=== PATIENT | male | born 1965 | race Caucasian/White ===

== ENCOUNTER 2017-12-31 23:22 | Outpatient (CLI) | payer MEDICAID | END 2017-12-31 23:23 | disposition critical access hospital (66) | LOC: EMS 23:22 | PROVIDERS: ATTEND Surgery | DX: R45.851 Suicidal ideations (principal) | CPT/HCPCS: A0425; A0429 ==

== ENCOUNTER 2017-12-31 23:45 | Emergency (ER) | payer MEDICAID ==
[2017-12-31] MEDS ORDERED: LORazepam 0.5 MG TABLET PO STA (23:53)
[2017-12-31] MEDS ORDERED: chlordiazePOXIDE 25 MG CAPSULE PO STA (23:53)
--- NOTE | 2017-12-31 23:53 | ED Physician Documentation ---
PD HPI MHE - Stated complaint Stated Complaint: SI - Chief complaint Chief Complaint: MHE - History obtained from History obtained from: Patient - History of Present Illness Primary symptom: Suicidal ideation, Depression Timing - onset: How many days ago (5) Contributing factors: Work, Substance abuse - ETOH Similar symptoms before: No diagnosis Recently seen: Not recently seen - Additional information Additional information: Patient is a 52 year old male with a history of depression who was brought in by ems for suicidal ideation. patient states that he lost his job 5 days ago out of nowhere. patient stated that he came over to [facility] to see his family and was found walking down the street in the rain saying he wanted to kill himself. he reported that he would use a shotgun. patient also stated that he is a daily drinker and drinks about a bottle of wine and a six pack a day. Review of Systems Ten Systems: 10 systems reviewed and negative Psychiatric: reports: Depressed, Suicidal, Anxiety PD PAST MEDICAL HISTORY - Present Medications Home Medications: Ambulatory Orders Medication Instructions Recorded Confirmed Cetirizine HCl/Pseudoephedrine 1 tab PO DAILY PRN 01/01/18 01/01/18 [Zyrtec-D Tablet] Venlafaxine HCl [Effexor Xr] 1 tab PO DAILY 01/01/18 01/01/18 - Allergies Allergies/Adverse Reactions: Allergies Allergy/AdvReac Type Severity Reaction Status Date / Time No Known Drug Allergies Allergy Verified 01/01/18 00:11 PD ED PE NORMAL - General General: Alert and oriented X 3 - HEENT HEENT: Atraumatic - Respiratory Respiratory: No respiratory distress, Clear bilaterally - Abdomen Abdomen: Non distended - Derm Derm: Normal color, No rash - Extremities Extremities: No deformity - Neuro Neuro: Alert and oriented X 3, No motor deficit Eye Opening: Spontaneous Motor: Obeys Commands Verbal: Oriented GCS Score: 15 PD ED PE EXPANDED - Cardiac Cardiac: Tachy - Psych Psych: Depressed, Suicidal, Withdrawn Results - Vitals Vitals: Vital Signs - 24 hr 12/31/17 01/01/18 01/01/18 23:48 00:09 00:45 Temperature 36.0 C L Heart Rate 105 H 94 88 Respiratory 20 18 16 Rate Blood Pressure 200/122 H 209/125 H 187/125 H O2 Saturation 99 95 96 01/01/18 01/01/18 01/01/18 01:07 02:22 03:24 Temperature Heart Rate 93 113 H 105 H Respiratory 16 16 16 Rate Blood Pressure 185/110 H 179/106 H 188/108 H O2 Saturation 99 95 97 01/01/18 06:18 Temperature Heart Rate 103 H Respiratory 18 Rate Blood Pressure 161/109 H O2 Saturation 99 Oxygen O2 Source Room air - Labs Labs: Laboratory Tests 01/01/18 01/01/18 01/01/18 00:04 00:04 00:04 WBC 5.8 RBC 4.59 L Hgb 15.0 Hct 43.2 MCV 94.0 MCH 32.7 H MCHC 34.8 RDW 13.7 Plt Count 242 MPV 7.7 Neut # 4.1 Lymph # 1.2 L [place] # 0.4 Eos # 0.0 Baso # 0.0 Absolute Nucleated RBC 0.00 Nucleated RBC % 0.0 Sodium 138 Potassium 3.7 Chloride 102 Carbon Dioxide 23 Anion Gap 13.0 BUN 9 Creatinine 0.8 Estimated GFR (MDRD) 102 Glucose 135 H Calcium 9.1 Total Bilirubin 1.3 H AST 64 H ALT 54 Alkaline Phosphatase 63 Total Protein 8.1 Albumin 4.8 Globulin 3.3 Albumin/Globulin Ratio 1.5 Lipase 21 L TSH 2.62 Urine Color Urine Clarity Urine pH Ur Specific [place] Urine Protein Urine Glucose (UA) Urine Ketones Urine Occult Blood Urine Nitrite Urine Bilirubin Urine Urobilinogen Ur Leukocyte Esterase Ur Microscopic Review Urine Culture Comments Urine Opiates Screen Ur Oxycodone Screen Urine Methadone Screen Ur Propoxyphene Screen Ur Barbiturates Screen Ur Tricyclics Screen Ur Phencyclidine Scrn Ur Amphetamine Screen U Methamphetamines Scrn U Benzodiazepines Scrn Urine Cocaine Screen U Cannabinoids Screen Ethyl Alcohol 8.4 01/01/18 00:39 WBC RBC Hgb Hct MCV MCH MCHC RDW Plt Count MPV Neut # Lymph # [place] # Eos # Baso # Absolute Nucleated RBC Nucleated RBC % Sodium Potassium Chloride Carbon Dioxide Anion Gap BUN Creatinine Estimated GFR (MDRD) Glucose Calcium Total Bilirubin AST ALT Alkaline Phosphatase Total Protein Albumin Globulin Albumin/Globulin Ratio Lipase TSH Urine Color YELLOW Urine Clarity CLEAR Urine pH 6.0 Ur Specific [place] 1.020 Urine Protein NEGATIVE Urine Glucose (UA) NEGATIVE Urine Ketones 40 H Urine Occult Blood NEGATIVE Urine Nitrite NEGATIVE Urine Bilirubin NEGATIVE Urine Urobilinogen 0.2 (NORMAL) Ur Leukocyte Esterase NEGATIVE Ur Microscopic Review NOT INDICATED Urine Culture Comments NOT INDICATED Urine Opiates Screen NEGATIVE Ur Oxycodone Screen NEGATIVE Urine Methadone Screen NEGATIVE Ur Propoxyphene Screen NEGATIVE Ur Barbiturates Screen NEGATIVE Ur Tricyclics Screen NEGATIVE Ur Phencyclidine Scrn NEGATIVE Ur Amphetamine Screen NEGATIVE U Methamphetamines Scrn NEGATIVE U Benzodiazepines Scrn NEGATIVE Urine Cocaine Screen NEGATIVE U Cannabinoids Screen NEGATIVE Ethyl Alcohol PD MEDICAL DECISION MAKING - ED course Complexity details: reviewed old records, reviewed results, re-evaluated patient , considered differential, d/w patient ED course: Patient was seen and examined at bedside. Patient was slightly agitated with mild withdrawal symptoms. Patient was tearful but cooperative. Patient was treated with ativan 0.5mg and librium. Patient was able to calm down. a few hours later patient was asking for something to help him sleep and was treated with ativan 1mg. Patient was able to rest comfortably. In the morning the patient was re-evaluated and he was able to elaborate more. 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 patient also states that his and child are in the [place] and he will not be able to see them. Patient states that this morning he does not want to kill himself but he would like to talk to the social work professor. Patient's blood pressure was still elevated and patient was treated with librium and clonidine. Patient had no signs of end organ damage and was medically clear by my standpoint. Patient was signed over to Dr. Lebron pending social work evaluation. Departure - Departure Clinical Impression: Depression Condition: Good Instructions: ED Stress React Comments: Your blood pressure was high today. It is at least in part due to alcohol withdrawal as well as elevated stress levels but it is important to monitor it routinely and follow up with your doctor if it remains elevated.
[2018-01-01 00:15] LABS: BASOPHILS % (AUTO) 0.4 %; EOSINOPHILS % (AUTO) 0.7 %; LYMPHOCYTES # (AUTO) 1.2 10^3/uL (1.5-3.5); LYMPHOCYTES % (AUTO) 20.1 %; MEAN CORPUSCULAR HEMOGLOBIN 32.7 pg (27.0-31.0); MEAN CORPUSCULAR HGB CONC 34.8 g/dL (32.0-36.0); MEAN PLATELET VOLUME 7.7 fL (7.4-11.4); MONOCYTES # (AUTO) 0.4 10^3/uL (0.0-1.0); MONOCYTES % (AUTO) 7.2 %; NEUTROPHILS # (AUTO) 4.1 10^3/uL (1.5-6.6); NEUTROPHILS % (AUTO) 71.6 %; PLT - PLATELET COUNT 242 10^3/uL (130-450); RED BLOOD COUNT 4.59 10^6/uL (4.70-6.10); RED CELL DISTRIBUTION WIDTH 13.7 % (12.0-15.0); WHITE BLOOD COUNT 5.8 x10^3/uL (4.8-10.8)
[2018-01-01 00:23] LABS: ALBUMIN 4.8 g/dL (3.2-5.5); ALBUMIN/GLOBULIN RATIO 1.5 (1.0-2.2); BILIRUBIN,TOTAL 1.3 mg/dL (0.2-1.0); CALCIUM 9.1 mg/dL (8.5-10.3); CREATININE 0.8 mg/dL (0.6-1.2); TOTAL PROTEIN 8.1 g/dL (6.7-8.2)
[2018-01-01 00:43] LABS: MUDS CUTOFF CONCENTRATIONS CUTOFF CONC BELOW:
[2018-01-01 00:48] LABS: BILIRUBIN,URINE NEGATIVE (NEGATIVE); GLUCOSE, URINE (UA) NEGATIVE (NEGATIVE); KETONES,URINE (UA) 40 mg/dL (NEGATIVE); LEUKOCYTE ESTERASE, URINE NEGATIVE (NEGATIVE); NITRITE,URINE NEGATIVE (NEGATIVE); OCCULT BLOOD,URINE NEGATIVE (NEGATIVE); PROTEIN,URINE NEGATIVE (NEGATIVE); UROBILINOGEN,URINE 0.2 (NORMAL) E.U./dL (NORMAL)
[2018-01-01 00:49] LABS: CLARITY,URINE CLEAR (CLEAR)
[2018-01-01 00:58] LABS: AMPHETAMINE SCREEN,URINE NEGATIVE (NEGATIVE); BENZODIAZEPINES SCREEN, URINE NEGATIVE (NEGATIVE); COCAINE SCREEN URINE NEGATIVE (NEGATIVE); METHADONE SCREEN, URINE NEGATIVE (NEGATIVE); METHAMPHETAMINES SCREEN, URINE NEGATIVE (NEGATIVE); OPIATE SCREEN, URINE NEGATIVE (NEGATIVE); OXYCODONE SCREEN, URINE NEGATIVE (NEGATIVE); PROPOXYPHENE SCREEN, URINE NEGATIVE (NEGATIVE); TRICYCLIC ANTIDEPRESSANT,URINE NEGATIVE (NEGATIVE)
[2018-01-01] MEDS ORDERED: LORazepam 0.5 MG TABLET PO STA (02:21)
[2018-01-01] MEDS ORDERED: cloNIDine 0.1 MG TABLET PO STA (06:42)
[2018-01-01] MEDS ORDERED: chlordiazePOXIDE 25 MG CAPSULE PO STA ×3 (06:47→14:00)
--- NOTE | 2018-01-01 08:01 | ED Physician Documentation ---
History of Present Illness - Stated complaint Stated Complaint: SI - Chief complaint Chief Complaint: MHE PD PAST MEDICAL HISTORY - Past Medical History Past Medical History: Yes Psych: Depression, Anxiety, Panic attacks - Past Surgical History Past Surgical History: No - Present Medications Home Medications: Ambulatory Orders Medication Instructions Recorded Confirmed Cetirizine HCl/Pseudoephedrine 1 tab PO DAILY PRN 01/01/18 01/01/18 [Zyrtec-D Tablet] Venlafaxine HCl [Effexor Xr] 1 tab PO DAILY 01/01/18 01/01/18 - Allergies Allergies/Adverse Reactions: Allergies Allergy/AdvReac Type Severity Reaction Status Date / Time No Known Drug Allergies Allergy Verified 01/01/18 00:11 - Social History Does the pt smoke?: No Smoking Status: Never smoker Does the pt drink ETOH?: Yes ETOH Use: Wine, Beer Does the pt have substance abuse?: No - Immunizations Immunizations are current?: Yes Results - Vitals Vitals: Vital Signs - 24 hr 01/01/18 01/02/18 01/02/18 19:07 01:30 04:21 Temperature 36.6 C 36.5 C 36.6 C Heart Rate 68 87 107 H Respiratory 14 16 16 Rate Blood Pressure 136/82 H 143/103 H 143/94 H O2 Saturation 97 98 98 01/02/18 01/02/18 05:54 08:00 Temperature 36.4 C L Heart Rate 89 66 Respiratory 15 Rate Blood Pressure 127/68 O2 Saturation 100 Oxygen O2 Source Room air - Labs Labs: Laboratory Tests 01/01/18 01/01/18 01/01/18 00:04 00:04 00:04 WBC 5.8 RBC 4.59 L Hgb 15.0 Hct 43.2 MCV 94.0 MCH 32.7 H MCHC 34.8 RDW 13.7 Plt Count 242 MPV 7.7 Neut # 4.1 Lymph # 1.2 L [place] # 0.4 Eos # 0.0 Baso # 0.0 Absolute Nucleated RBC 0.00 Nucleated RBC % 0.0 Sodium 138 Potassium 3.7 Chloride 102 Carbon Dioxide 23 Anion Gap 13.0 BUN 9 Creatinine 0.8 Estimated GFR (MDRD) 102 Glucose 135 H Calcium 9.1 Total Bilirubin 1.3 H AST 64 H ALT 54 Alkaline Phosphatase 63 Total Protein 8.1 Albumin 4.8 Globulin 3.3 Albumin/Globulin Ratio 1.5 Lipase 21 L TSH 2.62 Urine Color Urine Clarity Urine pH Ur Specific [place] Urine Protein Urine Glucose (UA) Urine Ketones Urine Occult Blood Urine Nitrite Urine Bilirubin Urine Urobilinogen Ur Leukocyte Esterase Ur Microscopic Review Urine Culture Comments Urine Opiates Screen Ur Oxycodone Screen Urine Methadone Screen Ur Propoxyphene Screen Ur Barbiturates Screen Ur Tricyclics Screen Ur Phencyclidine Scrn Ur Amphetamine Screen U Methamphetamines Scrn U Benzodiazepines Scrn Urine Cocaine Screen U Cannabinoids Screen Ethyl Alcohol 8.4 01/01/18 00:39 WBC RBC Hgb Hct MCV MCH MCHC RDW Plt Count MPV Neut # Lymph # [place] # Eos # Baso # Absolute Nucleated RBC Nucleated RBC % Sodium Potassium Chloride Carbon Dioxide Anion Gap BUN Creatinine Estimated GFR (MDRD) Glucose Calcium Total Bilirubin AST ALT Alkaline Phosphatase Total Protein Albumin Globulin Albumin/Globulin Ratio Lipase TSH Urine Color YELLOW Urine Clarity CLEAR Urine pH 6.0 Ur Specific [place] 1.020 Urine Protein NEGATIVE Urine Glucose (UA) NEGATIVE Urine Ketones 40 H Urine Occult Blood NEGATIVE Urine Nitrite NEGATIVE Urine Bilirubin NEGATIVE Urine Urobilinogen 0.2 (NORMAL) Ur Leukocyte Esterase NEGATIVE Ur Microscopic Review NOT INDICATED Urine Culture Comments NOT INDICATED Urine Opiates Screen NEGATIVE Ur Oxycodone Screen NEGATIVE Urine Methadone Screen NEGATIVE Ur Propoxyphene Screen NEGATIVE Ur Barbiturates Screen NEGATIVE Ur Tricyclics Screen NEGATIVE Ur Phencyclidine Scrn NEGATIVE Ur Amphetamine Screen NEGATIVE U Methamphetamines Scrn NEGATIVE U Benzodiazepines Scrn NEGATIVE Urine Cocaine Screen NEGATIVE U Cannabinoids Screen NEGATIVE Ethyl Alcohol PD MEDICAL DECISION MAKING - ED course ED course: assumed care 705 AM 01/01/18 hx from pt and turnover from night EMP Dr Colunga 52 male hx depression on effexor just lost his job and career and [place] and came back to [facility] where he has family feeling suicidal and planned to shoot himself denies homicidal no recent illness -no fever cough NVD etc does drink about 4 beers and bottle of wine daily and needed some ativan librium and catapress last night for the shakes VS noted pleasant and cooperative RRR CTAB little shaky now ER course 3785 12/31 pt arrived medically cleared 7 AM 4/6 shift change 705 AM I went and saw pt feel pt should have vol inpt mental health placement may have alcohol withdrawal sx so receiving facility will need to be able to manage that as well 715 AM ordered SW consult 930 AM awaiting SW eval 1030 SW asked house krystal to let me know that she will not be able to see this pt today and he will need to wait until tomorrow for a mental health eval and that she suggests I get a telepsych consult re meds to tx pt with while he waits 1055 telepsych consult ordered but that will not get pt inpt care and safe dispo and so I will try and place pt myself 1040 AM called [facility] they have a dc later today and may be able to accept pt - req fax face sheet labs urine and EMP notes in lieu of social work mental health eval to [facility] at 1045 AM called [facility] they have beds available and can manage withdrawal sx, express concern that pt is self pay, req fax face sheet labs and EMP note to [phone] registration has pt approved for iZ3D updated face sheet sent to [facility] called back stating no beds and [facility] called back stating they do not do dual diagnosis for DSHS pts 1545 telepsych eval complete and telespych doc agrees with my impression that pt needs inpt mental health care, voluntary at this point but severe enough situation that he would need to be detained and sent invol, also rec pt be given his usual effexor but he does not know the dose or if ER or not [address] [facility] and they can take mental health and alcohol w-drawal, will not be able to accept on this shift but might be able to take after midnight, req fax info [phone] provided [facility] info and intake will call back 183 called [facility] but they do not have inpt mental health [place] 1839 called [facility] and they have beds and could care for this pt req fax to [phone] turned care of pt back over to Dr Colunga for the night and presume I will resume efforts tomorrow morning unless pt is placed before then 2034 [facility] called back, need mental health eval (will fax telepsych note ) as well as ER clinical, fax to [phone] pts last dose of librium was at approx 1430 and he presently has no shakes tachycardia or hypertension, it does not seem EtOH withdrawal is an issue after all and that should help placement 7AM 01/02 resumed care pt has been accepted at [facility], DSHS preauth complete, COBRA forms signed , BLS transport is arranged and scheduled for 10 AM pt had an EKG done last night per receiving facility request time 0158 rate 79 NSR nl axis, nl intervals, no acute ischemia went to see pt at 705 AM, he is sitting up in bed working on his lap top, states he is doing well, slept 14 hr last night, no shakes or other sx of EtOH withdrawal, happy with plan to go to [facility], updated on time frame, breakfast ordered, pt has no other concerns at this point in time 9 AM transport arrived and pt departed, no acute events on AM shift Departure - Departure Disposition: 65 Psych Hosp/Unit DC/Xfer Clinical Impression: Depression Qualifiers: Depression Type: unspecified Qualified Code(s): F32.9 - Major depressive disorder, single episode, unspecified Condition: Good Instructions: ED Stress React Comments: Your blood pressure was high today. It is at least in part due to alcohol withdrawal as well as elevated stress levels but it is important to monitor it routinely and follow up with your doctor if it remains elevated. Discharge Date/Time: 01/02/18 09:37
--- NOTE | 2018-01-01 15:47 | TELEPSYCH PHYS NOTE ---
Telepsych Note - CHIEF COMPLAINT/HX OF PRESENT ILLNESS Cheif Complaint and History of Present Illness: Patient name & : Dylan Velasquez 69 Date & time of consultation: 01/01/18, 550pm Location of patient: [facility] Location of doctor: [place], [place] Chief Complaint: Telepsychiatry consultation This evaluation was conducted via Telepsychiatry with the assistance of onsite staff. History of Present Illness:~ This pt is a 52 yr old male who came to the ED last night endorsing depression with suicidal thoughts with plan to shoot himself. Telepsychiatry was consulted for assessment and recommendations for management. Upon interview pt is cooperative, interactive. He reports a psych history of depression and anxiety. He says that he currently has a psychiatrist and takes effexor. He says that recently he has been under a lot of stress divorce, lost his job in [facility] (where he was living for 10 years). Pt says that last night with all this stress he was in his apartment where he decided to plan my suicide. He planned to go buy a gun and shoot himself. He says that after he left [facility] he actually moved back home here to near his family. He sasy that last night that while making his last plans and praying he realized that he may not want to kill himself. He did not have a phone so went outside, saw a man on the street and asked the man to call 911, whom brought him here. Pt reports that in the past around 12 years ago he had suicidal thoughts but denies any hx of suicide attempt. Pt also reports daily alcohol use, around 4 beers and a bottle of wine per night. Last use was yesterday. He denies current withdrawal sx. He denies hx of seizures or DTs. He denies drug use. Most recent vitals BP 170/119 and pulse of 107. Collateral: see HPI Psychiatric History/Treatment History:~~ -Inpatient:~pt says that he was in a medical hospital in the past for panic attacks but never in a psych hospital -Outpatient:~~yes -History of suicide attempts:~denies ~ Drug/Alcohol History:~UDS negative. See HPI. He has never been to detox or rehab before Medical History: -Medical problems:~see chart -Current medications:~~his current psych medication is effexor which he has been on for years ~ Family Psychiatric History:~+ family hx of depression and anxiety; brother with substance abuse; no family hx of suicide attempt per pt ~ Social History:~~~~ -Employment: recently lost his job -Housing: -Stressors: divorce, recent move, loss of job -Strength/supports: family ~ Mental Status Exam: Appearance and attire:~ hospital attire Attitude and behavior:~cooperative, interactive, appropriate Speech: clear, coherent, RRR, not rapid or pressured Affect and mood: depressed Association and thought processes: goal directed Thought content: no overt delusions. +SI Perception:~ pt does not appear to be responding to internal stimuli. Sensorium, memory, and orientation:~ AAOx3 Intellectual functioning: average Insight and judgment:~fair ~ Diagnosis: Unspecified depressive disorder Unspecified anxiety disorder Alcohol use disorder Impression/Risk Assessment/Treatment Recommendations: -Recommended level of care: The patient is a 52 yr old male who came to the hospital after a suicide attempt. He has multiple risk factors for suicide including major recent and severe stressors and substance abuse. ~ The patient is thus an acute danger to self and requires inpatient psychiatric hospitalization for stabilization and treatment. ~ Recommend admission to in psychiatry once medically cleared. If pt agrees to admission he can be admitted under voluntary status. If he should refuse then he SHOULD NOT be discharged as he is high risk and a potential danger to self in that case he should be committed. ~ ~ -Recommended pharmacology/therapy/other treatments: ~ Recommend starting an alcohol detox protocol: seizure precautions, vitals with CIWA q4hrs, Ativan 2mg PO q4hrs prn for sx of withdrawal as based on elevated vitals/CIWA scores (hold Ativan for somnolence, ataxia or dysarthria), multivitamin 1 tablet PO daily, thiamine 100mg PO daily, folic acid 1mg PO daily. ~ ~If his home medication of effexor with current dose can be verified by pharmacy , then that may be continued upon admission. Further recommendations will be made by the inpatient psychiatry treatment team upon admission there. ~ ~ Pt expressed agreement with this plan. Case discussed with ED treatment team. ~ ~ ~ Lenka Lin MD Telepsychiatry - SI/HI/SELF HARM SI/HI/SELF HARM (CURRENT OR HISTORY OF):: SI SI/HI/Self Harm Text (Current or History of):: see HPI - PSYCHIATRIC HX/TREATMENT HX Psychiatric: Depression, Anxiety, Panic attacks - DRUG/ALCOHOL HX ETOH Use: Wine, Beer Number: 4 - MEDICAL HX Does the pt have a hx of MRSA?: No - HOME MEDICATIONS Home Meds (as last confirmed): Patient History Medication Instructions Recorded Confirmed Cetirizine HCl/Pseudoephedrine 1 tab PO DAILY PRN 01/01/18 01/01/18 [Zyrtec-D Tablet] Venlafaxine HCl [Effexor Xr] 1 tab PO DAILY 01/01/18 01/01/18 - ALLERGIES Allergies (as last confirmed): Allergies Allergy/AdvReac Type Severity Reaction Status Date / Time No Known Drug Allergies Allergy Verified 01/01/18 00:11 - TIME SPENT & PROVIDER LOCATION Telepsych consultation conducted via videoconferencing: Yes List names and roles of persons who participated in consult: Lenka Lin - telepsychiatrist Telepsych Provider Location: [facility] Time Telepsych consult began: 05:30 (pm EST) Time Telepsych consult completed: 06:20 (pm EST)
--- NOTE | 2018-01-02 05:36 | ED Physician Documentation ---
ED Addendum - Addendum Addendum: 01/02/18 05:35 Patient was observed overnight. Patient was asymptomatic and required no intervention. [facility] there was no transport available until 10am.
[2018-01-02 09:14] VITALS: BP 127/68
== END 2018-01-02 09:37 ==
LOC: ED 23:45
DX: F32.9 Major depressive disorder, single episode, unspecified (principal); R45.851 Suicidal ideations; R03.0 Elevated blood-pressure reading, without diagnosis of hypertension
CPT/HCPCS: 36415; 80053; 80306; 80320; 81003; 83690; 84443; 85025; 93005; 99285; A9270; G0426; Q3014; 81001; 87086

== ENCOUNTER 2018-04-24 03:49 | Outpatient (CLI) | payer OTHER | END 2018-04-24 03:50 | disposition home or self-care (01) | LOC: LAB 03:49 | PROVIDERS: ATTEND Pathology Blood Banking & Transfusion Medicine | DX: Z01.89 Encounter for other specified special examinations (principal) | CPT/HCPCS: 36415 ==

== ENCOUNTER 2018-05-13 07:58 | Outpatient (CLI) | payer MEDICAID ==
[2018-05-13 12:03] LABS: CHOL/HDL RATIO 5.5 (<5.0); CHOLESTEROL 259 mg/dL; HDL CHOLESTEROL 47 mg/dL; LDL CHOLESTEROL,CALCULATED 184 mg/dL; LDL/HDL RATIO 3.9 (<3.6); VLDL CHOLESTEROL 28 mg/dL
[2018-05-13 12:23] LABS: HEMOGLOBIN A1C 0.5 g/dL
[2018-05-14 15:01] LABS: HIV AG/AB 4TH GEN NON-REACTIVE (NON-REACTIVE)
== END 2018-05-13 07:59 | disposition home or self-care (01) ==
LOC: LAB.F 07:58
PROVIDERS: ATTEND Internal Medicine
DX: Z00.00 Encounter for general adult medical examination without abnormal findings (principal)
CPT/HCPCS: 36415; 80061; 83036; 83721; 87389